=== PATIENT | male | born 1980 | race Caucasian/White ===

== ENCOUNTER 2022-07-18 07:30 | Day surgery (SDC) | payer OTHER ==
[2022-07-17 09:41] VITALS: BMI 28.6
[2022-07-18] MEDS ORDERED: Isoproterenol 0.2 MG/1 ML AMP ONE (08:38)
[2022-07-18] MEDS ORDERED: Heparin 10,000 UNITS/ 10 ML VIAL ONE ×2 (08:38→11:03)
[2022-07-18] MEDS ORDERED: Heparin 25,000 units/D5W 500 ML ONE (08:38)
[2022-07-18] MEDS ORDERED: Protamine Sulfate 50 MG/5 ML VIAL ONE (08:38)
[2022-07-18] MEDS ORDERED: FENTANYL 50 MCG/ML 1 ML VIAL ONE ×2 (09:00→12:08)
[2022-07-18] MEDS ORDERED: Midazolam HCl 2 mg/2 ml Vial ONE (09:00)
[2022-07-18] MEDS ORDERED: PROPOFOL 200 MG/20 ML VIAL ONE (09:15)
[2022-07-18] MEDS ORDERED: Phenylephrine 10 MG/ML VIAL ONE (09:15)
[2022-07-18] MEDS ORDERED: Dexamethasone 20 MG/5 ML VIAL ONE (09:15)
[2022-07-18] MEDS ORDERED: Ondansetron PF 4 MG/2 ML Vial ONE (09:15)
[2022-07-18] MEDS ORDERED: Rocuronium Bromide 10 MG/ML (10ML VIAL) ONE (09:15)
[2022-07-18] MEDS ORDERED: Albuterol Sulfate HFA (OR ONLY) ONE (09:15)
[2022-07-18] MEDS ORDERED: SUGAMMADEX SODIUM 200 MG/2 ML VIAL ONE (11:15)
[2022-07-18] MEDS ORDERED: Albuterol Sulfate 1.25 MG/3 ML NEB ONE (12:33)
== END 2022-07-18 15:00 | disposition home or self-care (01) ==
LOC: SDC 07:30
PROVIDERS: ATTEND Internal Medicine Cardiovascular Disease
PROC: 02K83ZZ Map Conduction Mechanism, Percutaneous Approach (ICD-10-PCS; principal; 2022-07-18)
PROC: 4A0234Z Measurement of Cardiac Electrical Activity, Percutaneous Approach (ICD-10-PCS; principal; 2022-07-18)
PROC: 4A023FZ Measurement of Cardiac Rhythm, Percutaneous Approach (ICD-10-PCS; principal; 2022-07-18)
PROC: 02583ZZ Destruction of Conduction Mechanism, Percutaneous Approach (ICD-10-PCS; principal; 2022-07-18)
PROC: B246ZZ4 Ultrasonography of Right and Left Heart, Transesophageal (ICD-10-PCS; principal; 2022-07-18)
DX: I48.0 Paroxysmal atrial fibrillation (principal); I48.4 Atypical atrial flutter; F17.200 Nicotine dependence, unspecified, uncomplicated; Z79.01 Long term (current) use of anticoagulants; Z79.899 Other long term (current) drug therapy
CPT/HCPCS: 85347; 93005; 93312; 93655; 93656; C1730; C1731; C1732; C1759; C1760; C1769; C1894; C2630; J1100; J1644; J2250; J2370; J2405; J2704; J2720; J3010